=== PATIENT | male | born 1995 | race African-American/Black ===

== ENCOUNTER 2024-03-19 16:20 | Emergency (ER) | payer MEDICAID ==
[~2024-03-19] VITALS: Ht 185.4 cm; Wt 80.0 kg
[2024-03-19 16:32] VITALS: O2SAT 99
[2024-03-19 16:51] VITALS: BP 134/82; PULSE 86; RESP 16; TEMP 98.9; O2SAT 99
[2024-03-19 20:09] LABS: CLARITY URINE CLEAR (CLEAR); COLOR URINE YELLOW (YELLOW); GLUCOSE URINE NEGATIVE (NEGATIVE); KETONES URINE NEGATIVE (NEGATIVE); LEUKOCYTE ESTERASE URINE NEGATIVE (NEGATIVE); NITRITE URINE NEGATIVE (NEGATIVE); OCCULT BLOOD URINE NEGATIVE (NEGATIVE); PROTEIN URINE NEGATIVE (NEGATIVE); SPECIFIC GRAVITY URINE 1.015 (1.005-1.030); UROBILINOGEN URINE 0.2 E.U./dL (0.2-1.0)
[2024-03-19] MEDS ORDERED: DOXY100T2 MT (20:43)
[2024-03-19] MEDS: CEFTRIAXONE SODIUM 500MG VIAL IM ONE (20:45)
[2024-03-23 04:10] LABS: CHLAMYDIA TRACHOMATIS NAA Negative (Negative); NEISSERIA GONORRHOEAE NAA Negative (Negative)
== END 2024-03-19 21:04 | disposition home or self-care (01) ==
LOC: ER 16:20
DX: R30.0 Dysuria (principal)
CPT/HCPCS: 99283; 87491; 87591; 81003; J0696